=== PATIENT | female | born 1990 | race African-American/Black ===

== ENCOUNTER → 2017-10-10 | Outpatient (REF) | payer SELFPAY, OTHER ==
[2017-10-17 00:07] LABS: HSV TYPE I IgG SPECIFIC <0.91 index (0.00-0.90); HSV TYPE II IgG SPECIFIC <0.91 index (0.00-0.90); HSV TYPE II IgM ABY <1:10 titer (<1:10)
== END ==
LOC: M SFHCLERA 19:47
DX: N94.9 Unspecified condition associated with female genital organs and menstrual cycle (principal)